=== PATIENT | female | born 1990 | race African-American/Black ===

== ENCOUNTER 2016-03-18 14:01 | Emergency (ER) | payer OTHER ==
[~2016-03-18] VITALS: Ht 175.3 cm; Wt 87.5 kg
[2016-03-18 14:22] VITALS: Ht 175.3 cm; Wt 87.5 kg
--- NOTE | 2016-03-18 15:27 | ERD ---
ER Documentation Chief Complaint Date/Time DATE: 03/18/16 TIME: 15:23 Chief Complaint BODYACHES CWP ST COUGH HPI The patient is a 25-year-old female here with 10 days of productive cough of yellow and green sputum, intermittent fevers as high as 101, chest congestion, and nasal congestion. She has some right-sided chest wall pain when she is coughing quite hard. She has taken Robitussin and Dimetapp without relief. No other home treatments. She denies chills, nausea, vomiting, diarrhea, shortness of breath, difficulty breathing, ear pain, malaise, headache, or any other symptoms at this time. She denies travel. She reports smoking marijuana once per day. And reports sick contacts. ROS All systems reviewed and are negative except as per history of present illness. Medications Home Meds Active Scripts Azithromycin* (Zithromax*) 250 Mg Tablet, 250 MG PO .ZPACK DIRECTED, #6 TAB TAKE 500 MG (2 TABS) THE FIRST DAY THEN 250 MG (1 TAB) DAYS 2-5 Prov:LORI BEE NP 03/18/16 Albuterol Sulfate* (Ventolin HFA*) 18 Gm Hfa.aer.ad, 2 PUFF INHALATION Q4H, #1 INHALER Prov:LORI BEE NP 03/18/16 Acetaminophen* (Tylophen*) 500 Mg Capsule, 2 CAP PO Q8H Y for PAIN AND OR ELEVATED TEMP, #20 CAP Prov:LORI BEE NP 03/18/16 Fluconazole* (Diflucan*) 150 Mg Tablet, 150 MG PO ONCE, #1 TAB Prov:LORI BEE NP 03/18/16 Physical Exam Vitals Vital Signs Date Time Temp Pulse Resp B/P Pulse Ox O2 Delivery O2 Flow Rate FiO2 03/18/16 14:22 98.1 93 18 134/66 97 Physical Exam Const: No acute distress, nontoxic appearing Vital signs: Reviewed by me, afebrile, no tachycardia Head: Atraumatic Eyes: Normal Conjunctiva, extraocular movements intact. No clear or purulent drainage. ENT: Normal External Ears, Nose and Mouth. Inferior nasal turbinates with mild erythema. Clear rhinorrhea. Nares patent. No sinus tenderness to palpation. Ear canals clear. Tympanic membranes without erythema, bulging, injection, or effusion. Throat is clear without erythema or purulence. Airway patent. Neck: Full range of motion..~ No meningismus. No lymphadenopathy. Resp: Clear to auscultation bilaterally. No adventitious breath sounds. Cardio: Regular rate and rhythm, no murmurs Abd: Soft, non tender, non distended. Normal bowel sounds in all quadrants. Skin: No petechiae or rashes Back: No midline or flank tenderness Ext: No cyanosis, or edema Neur: Awake and alert Psych: Normal Mood and Affect Procedures/MDM Nursing Notes Reviewed Previous Medical Records requested via Bench. EMERGENCY DEPARTMENT COURSE / MEDICAL DECISION MAKING: The patient comes to the ED secondary to productive cough and intermittent fever since 10 days. Differential diagnosis upon initial evaluation includes but is not limited to: Pneumonia, bronchitis, URI, meningitis, sepsis and others. Given that the patient's symptoms have persisted 10 days, she has a productive cough of yellow/green sputum, and she continues to have intermittent fevers, I have a high suspicion for pneumonia vs. bacterial bronchitis, and will treat her with antibiotics on an outpatient basis. I feel that she is an appropriate candidate for outpatient management and follow-up at this time given that she is well-appearing, without signs of systemic infection/sepsis, does not have neck stiffness or neck pain, does not have photophobia, had a benign physical exam, had oximetry of 97% on room air, had no respiratory distress or increased respiratory effort. Final impression: Pneumonia Based on patient's history of present illness and physical examination the decision was made to discharge. There is no evidence of life threatening injuries or illnesses at this time. Patient requesting Diflucan as she reports frequent yeast infections after antibiotic use. Patient requesting albuterol inhaler, as she reports occasional wheezing when she gets a respiratory tract infection. On re-examination, patient resting in no distress, reports feeling safe for discharge with outpatient follow up with PMD in 1-2 days. Patient given return precautions. She verbalized understanding and agreed to return precautions. All of her questions and concerns were addressed prior to discharge. She agrees with the plan of care. Patient was counseled to please stop smoking marijuana. Prescriptions Z-Nito Tylenol Diflucan albuterol inhaler Departure Diagnosis: Primary Impression: Bacterial pneumonia, unspecified Condition: Stable LORI BEE NP Mar 18, 2016 15:27
[2016-03-18] MEDS ORDERED: ACET500C5 PO (15:31)
[2016-03-18] MEDS ORDERED: AZIT250T94 PO (15:31)
[2016-03-18] MEDS ORDERED: FLUC150T17 PO (15:31)
[2016-03-18] MEDS ORDERED: ALBU18HF INHALATION (15:31)
== END 2016-03-18 15:32 | disposition home or self-care (01) ==
LOC: FTE 14:01 → E/R 15:32
DX: J15.9 Unspecified bacterial pneumonia (principal)
CPT/HCPCS: 99284